=== PATIENT | male | born 1950 | race Caucasian/White ===

== ENCOUNTER 2022-02-23 15:30 | Outpatient (CLI) | payer MEDICARE ==
--- NOTE | 2022-02-23 14:44 | XRAY Report ---
PROCEDURE: Lumbar Spine 2 View INDICATIONS: LEFT LUMBAR RADICULOPATHY TECHNIQUE: 2 views of the lumbar spine were acquired. COMPARISON: None. FINDINGS: Bones: 5 [id number] vertebrae are present. No lateral subluxation. Trace anterolisthesis L3-4 a nd trace retrolisthesis L4-5 and L5-S1. There is moderately severe disc height loss L4-5 and L5-S1 wi th mild endplate spurs. Mild disc height loss at other levels. No vertebral body compression fracture s. No suspicious bony lesions. Soft tissues: Overlying bowel gas pattern is normal. No suspicious soft tissue calcifications. Hea vy aortobiiliac atherosclerotic calcification. IMPRESSION: 1. Multilevel spondylosis L3-S1. 2. Heavy atherosclerotic calcification. Reviewed by: Stephani Zacarias MD on 02/23/2022 2:43 PM PDT Approved by: Stephani Zacarias MD on 02/23/2022 2:43 PM PDT Station ID: [id number]
== END 2022-02-23 15:31 | disposition home or self-care (01) ==
LOC: DI.S 15:30
PROVIDERS: ATTEND Physician Assistant
DX: M43.17 Spondylolisthesis, lumbosacral region (principal); M51.16 Intervertebral disc disorders with radiculopathy, lumbar region; M51.37 Other intervertebral disc degeneration, lumbosacral region; G95.19 Other vascular myelopathies